=== PATIENT | male | born 1980 ===

== ENCOUNTER 2021-02-07 08:49 | Emergency (ER) | payer OTHER ==
[~2021-02-07] VITALS: Ht 167.6 cm; Wt 74.8 kg
[2021-02-07] MEDS ORDERED: VENTOLIN HFA18 GM (08:59)
[2021-02-07] MEDS ORDERED: RAYOS5 MG (08:59)
[2021-02-07] MEDS ORDERED: PROAIR HFA8.5 GM (09:00)
[2021-02-07] MEDS ORDERED: BREO ELLIPTA I1 EACH (09:00)
[2021-02-07] MEDS ORDERED: BUDESONIDE0.5 MG/2 M IH (13:26)
[2021-02-07] MEDS ORDERED: MEDROLPACK PO (13:26)
[2021-02-07] MEDS ORDERED: IPRAT-ALBUT 0.5-3 ML IH (13:26)
[2021-02-07] MEDS ORDERED: MUCINEX DM ER1 EAC1 PO (13:26)
== END 2021-02-07 15:16 | disposition home or self-care (01) ==
LOC: ER 08:49
DX: J45.901 Unspecified asthma with (acute) exacerbation (principal); J06.9 Acute upper respiratory infection, unspecified; Z03.818 Encounter for observation for suspected exposure to other biological agents ruled out